=== PATIENT | female | born 1970 | race Caucasian/White ===

== ENCOUNTER → 2016-11-09 | Outpatient (REF) | payer OTHER | LOC: M LAB REF 12:48 | PROVIDERS: ATTEND Internal Medicine | DX: D50.9 Iron deficiency anemia, unspecified (principal) ==

== ENCOUNTER → 2016-12-09 | Outpatient (REF) | payer OTHER | LOC: M LAB REF 13:21 | PROVIDERS: ATTEND Internal Medicine | DX: D50.9 Iron deficiency anemia, unspecified (principal) ==

== ENCOUNTER → 2017-02-10 | Outpatient (REF) | payer OTHER | LOC: M LAB REF 12:54 | PROVIDERS: ATTEND Internal Medicine | DX: D50.9 Iron deficiency anemia, unspecified (principal) ==

== ENCOUNTER → 2017-06-02 | Outpatient (REF) | payer OTHER ==
[2017-06-02 14:51] LABS: CORTISOL AM 14.5 UG/DL (4.3-22.4)
== END ==
LOC: M LAB REF 13:01
PROVIDERS: ATTEND Internal Medicine
DX: L80 Vitiligo (principal); D50.9 Iron deficiency anemia, unspecified

== ENCOUNTER → 2017-12-03 | Outpatient (REF) | payer OTHER ==
[2017-12-03 13:50] LABS: FERRITIN 5 NG/ML (8-252)
== END ==
LOC: M LAB REF 12:49
DX: D50.9 Iron deficiency anemia, unspecified (principal)

== ENCOUNTER → 2018-03-09 | Outpatient (REF) | payer OTHER ==
[2018-03-09 14:08] LABS: FERRITIN 7 NG/ML (8-252)
== END ==
LOC: M LAB REF 13:32
DX: D50.9 Iron deficiency anemia, unspecified (principal)
CPT/HCPCS: 82728

== ENCOUNTER → 2018-06-14 | Outpatient (REF) | payer OTHER ==
[2018-06-15 00:04] LABS: FERRITIN 6 NG/ML (8-252)
[2018-06-15 00:10] LABS: CORTISOL AM 14.3 UG/DL (4.3-22.4)
[2018-06-20 14:12] LABS: ALDOS/RENIN RATIO 18.1 (0.0-30.0); ALDOSTERONE 15.4 ng/dL (0.0-30.0); METANEPHRINE PLASMA 21 pg/mL (0-62); NORMETANEPHRINE PLASMA 48 pg/mL (0-145); RENIN ACTIVITY 0.851 ng/mL/hr (0.167-5.380)
== END ==
LOC: M LAB REF 13:14
DX: D50.9 Iron deficiency anemia, unspecified (principal); D44.10 Neoplasm of uncertain behavior of unspecified adrenal gland

== ENCOUNTER → 2019-03-01 | Outpatient (REF) | payer OTHER | LOC: M LAB REF 12:29 | PROVIDERS: ATTEND Internal Medicine | DX: K21.9 Gastro-esophageal reflux disease without esophagitis (principal); E55.9 Vitamin D deficiency, unspecified ==

== ENCOUNTER → 2019-08-30 | Outpatient (REF) | payer OTHER | LOC: M LAB REF 14:25 | PROVIDERS: ATTEND Internal Medicine | DX: R50.9 Fever, unspecified (principal) ==

== ENCOUNTER → 2020-01-02 | Outpatient (REF) | payer OTHER ==
[2020-01-02 16:51] LABS: PERCENT SATURATION 7.1 % (13.2-45.0)
== END ==
LOC: M LAB REF 16:16
PROVIDERS: ATTEND Internal Medicine
DX: D50.9 Iron deficiency anemia, unspecified (principal)

== ENCOUNTER → 2021-10-21 | Outpatient (REF) | payer OTHER ==
[2021-10-22 13:15] LABS: PERCENT SATURATION 4.3 % (13.2-45.0)
== END ==
LOC: M LAB REF 11:37
PROVIDERS: ATTEND Internal Medicine
DX: D50.9 Iron deficiency anemia, unspecified (principal)

== ENCOUNTER → 2022-05-20 | Outpatient (CLI) | payer OTHER | LOC: M SLEEP HO 12-04 11:32 | PROVIDERS: ATTEND Nurse Practitioner Family | DX: R06.83 Snoring (principal) ==

== ENCOUNTER → 2022-09-15 | Outpatient (CLI) | payer OTHER | LOC: M SLEEP 20:00 | PROVIDERS: ATTEND Nurse Practitioner Family | DX: Z53.9 Procedure and treatment not carried out, unspecified reason (principal) ==

== ENCOUNTER → 2022-09-30 | Outpatient (CLI) | payer OTHER | LOC: M WUC 10:10 | PROVIDERS: ATTEND Internal Medicine | DX: R05.9 Cough, unspecified (principal) ==

== ENCOUNTER → 2023-01-27 | Outpatient (REF) | payer OTHER ==
[~2023-01-27] MED LIST: BUSP5TA PO; DEXL60CA PO; FERR325T3 PO; LEVO88TA3 PO; LEXA1TAB2 PO; SENO8.6T10 PO; VITA500C24 PO
[2023-01-27 13:41] LABS: FERRITIN 2.1 NG/ML (7.3-270.7)
== END ==
LOC: M LAB REF 12:26
PROVIDERS: ATTEND Internal Medicine
DX: D50.9 Iron deficiency anemia, unspecified (principal)

== ENCOUNTER → 2023-01-29 | Outpatient (REF) | payer OTHER | LOC: M PLALAB 14:06 | PROVIDERS: ATTEND Advanced Practice Midwife | DX: N92.1 Excessive and frequent menstruation with irregular cycle (principal); R93.89 Abnormal findings on diagnostic imaging of other specified body structures ==

== ENCOUNTER → 2023-03-01 | Outpatient (REF) | payer OTHER | LOC: M LAB REF 17:22 | PROVIDERS: ATTEND Internal Medicine | DX: D50.9 Iron deficiency anemia, unspecified (principal) ==

== ENCOUNTER 2023-06-09 08:33 | Day surgery (SDC) | payer OTHER ==
[~2023-06-09] VITALS: Ht 160 cm; Wt 98.1 kg
[~2023-06-09 08:33] MED LIST changes: +ceFAZolin SOD 2 GM in IV 1 EA IV ONE
[2023-06-09 09:25] LABS: HEMATOCRIT 41.8 % (36.0-47.0); HEMOGLOBIN 13.5 g/dl (12.0-15.5); MEAN CORPUSCULAR HEMOGLOBIN 27.3 pg (27.0-33.0); MEAN CORPUSCULAR HGB CONC 32.3 g/dl (32.0-36.5); MEAN CORPUSCULAR VOLUME 84.4 fl (80.0-96.0); PLATELET COUNT, AUTOMATED 341 10^3/uL (150-450); RED BLOOD COUNT 4.95 10^6/uL (4.00-5.40); WHITE BLOOD COUNT 7.1 10^3/uL (4.0-10.0)
[2023-06-09] MEDS ORDERED: LR 1,000 ML IV SCH ×2 (09:25→13:00)
[2023-06-09] MEDS ORDERED: METOCLOPRAMIDE INJ 10MG/2ML VIAL As Ordered ONE (11:21)
[2023-06-09] MEDS ORDERED: HYDROmorphone HCL 2MG/ML 1ML VIAL As Ordered ONE (11:21)
[2023-06-09] MEDS ORDERED: SUGAMMADEX SODIUM 500 MG/5 ML VIAL (BRIDION) As Ordered ONE (11:21)
[2023-06-09] MEDS ORDERED: PHENYLephrine 500MCG 5ML (100MCG/ML) SYRINGE As Ordered ONE (11:21)
[2023-06-09] MEDS ORDERED: ROCURONIUM BROMIDE 50MG/5ML VIAL As Ordered ONE (11:21)
[2023-06-09] MEDS ORDERED: ACETAMINOPHEN 1000MG 100ML IV BAG As Ordered ONE (11:21)
[2023-06-09] MEDS ORDERED: ePHEDrine SULFATE 25 MG/5 ML(5MG/ML) SYRINGE As Ordered ONE (11:21)
[2023-06-09] MEDS ORDERED: KETOROLAC 60MG 2ML VIAL As Ordered ONE (11:21)
[2023-06-09] MEDS ORDERED: MIDAZOLAM INJ 2MG/2ML VIAL As Ordered ONE (11:21)
[2023-06-09] MEDS ORDERED: propofoL 200 MG/20 ML VIAL As Ordered ONE ×2 (11:21→13:01)
[2023-06-09] MEDS ORDERED: fentaNYL 100 MCG/2 ML INJECTION As Ordered ONE (11:21)
[2023-06-09] MEDS ORDERED: ONDANSETRON 4MG 2ML VIAL As Ordered ONE (11:21)
[2023-06-09] MEDS ORDERED: LIDOCAINE 2% 100MG/5ML SDV (FOR ANES.) As Ordered ONE (11:21)
[2023-06-09] MEDS ORDERED: fentaNYL 100 MCG/2 ML INJECTION IV PRN (13:00)
[2023-06-09] MEDS ORDERED: MEPERIDINE 25 MG/ML 1ML VIAL IV PRN (13:00)
[2023-06-09] MEDS ORDERED: ONDANSETRON 4MG 2ML VIAL IV PRN (13:00)
[2023-06-09] MEDS ORDERED: PERCOCET 5MG/325MG TAB PO PRN (13:20)
[2023-06-09 14:39] VITALS: BP 133/65
[2023-06-09 16:37] VITALS: TEMP 98; O2SAT 98
[2023-06-09] MEDS ORDERED: KETOROLAC 30 MG/ML 1ML VIAL IV SCH (18:00)
== END 2023-06-09 16:40 | disposition home or self-care (01) ==
LOC: M SDC 08:33
PROVIDERS: ATTEND Obstetrics & Gynecology
DX: N80.03 Adenomyosis of the uterus (principal); N93.9 Abnormal uterine and vaginal bleeding, unspecified; N87.9 Dysplasia of cervix uteri, unspecified; N88.8 Other specified noninflammatory disorders of cervix uteri; D64.9 Anemia, unspecified; E03.9 Hypothyroidism, unspecified; Z79.899 Other long term (current) drug therapy; G47.30 Sleep apnea, unspecified; Z79.890 Hormone replacement therapy

== ENCOUNTER → 2023-12-08 | Outpatient (REF) | payer OTHER ==
[~2023-12-08] MED LIST changes: -ceFAZolin SOD 2 GM in IV 1 EA IV ONE
== END ==
LOC: M LAB REF 12:07
PROVIDERS: ATTEND Internal Medicine
DX: D50.9 Iron deficiency anemia, unspecified (principal)

== ENCOUNTER → 2024-04-10 | Outpatient (REF) | payer OTHER ==
[~2024-04-10] MED LIST changes: -DEXL60CA PO; +DEXL60CA13 PO
== END ==
LOC: M LAB REF 16:08
PROVIDERS: ATTEND Internal Medicine
DX: D50.9 Iron deficiency anemia, unspecified (principal)

== ENCOUNTER → 2024-07-11 | Outpatient (REF) | payer OTHER | LOC: M LAB REF 13:02 | PROVIDERS: ATTEND Internal Medicine | DX: D50.9 Iron deficiency anemia, unspecified (principal) ==

== ENCOUNTER → 2024-11-13 | Outpatient (REF) | payer OTHER ==
[2024-11-13 20:38] LABS: FERRITIN 16.8 NG/ML (7.3-270.7)
== END ==
LOC: M LAB REF 17:24
PROVIDERS: ATTEND Internal Medicine
DX: R74.8 Abnormal levels of other serum enzymes (principal); D50.9 Iron deficiency anemia, unspecified

== ENCOUNTER → 2024-12-06 | Outpatient (CLI) | payer OTHER ==
[~2024-12-06] MED LIST changes: +ROSU5TAB49 PO
== END ==
LOC: M ONCR 12:54
PROVIDERS: ATTEND General Practice
DX: D05.12 Intraductal carcinoma in situ of left breast (principal); Z98.890 Other specified postprocedural states; Z17.0 Estrogen receptor positive status [ER+]; Z17.21 Progesterone receptor positive status; Z90.710 Acquired absence of both cervix and uterus; Z79.890 Hormone replacement therapy; Z79.899 Other long term (current) drug therapy; Z71.2 Person consulting for explanation of examination or test findings

== ENCOUNTER → 2024-12-29 | Outpatient (REF) | payer OTHER | LOC: M PLALAB 14:16 | PROVIDERS: ATTEND Advanced Practice Midwife | DX: L90.0 Lichen sclerosus et atrophicus (principal) ==

== ENCOUNTER → 2025-07-03 | Outpatient (REF) | payer OTHER | LOC: M LAB REF 12:07 | PROVIDERS: ATTEND Internal Medicine | DX: R74.8 Abnormal levels of other serum enzymes (principal); D50.9 Iron deficiency anemia, unspecified ==

== ENCOUNTER → 2025-08-03 | Outpatient (CLI) | payer OTHER | LOC: M ONCR 13:29 | PROVIDERS: ATTEND General Practice | DX: D05.12 Intraductal carcinoma in situ of left breast (principal); Z98.890 Other specified postprocedural states; Z79.810 Long term (current) use of selective estrogen receptor modulators (SERMs); Z79.899 Other long term (current) drug therapy ==